=== PATIENT | female | born 2005 | race African-American/Black ===

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

== ENCOUNTER → 2024-06-05 | Outpatient (REF) | LOC: M EMP 09:37 | PROVIDERS: ATTEND Family Medicine | DX: Z11.52 Encounter for screening for COVID-19 (principal) ==